=== PATIENT | female | born 1950 | race Caucasian/White ===

== ENCOUNTER 2016-07-24 14:04 | Emergency (ER) | payer MEDICARE, MEDICAID ==
[2016-07-24 23:51] LABS: BASO % 0.5 % (0.0-2.0); EOS # 0.1 K/uL (0.0-0.7); HEMATOCRIT 33.2 % (34.0-47.0); LYMPH # 1.1 K/uL (1.0-4.3); LYMPH % 11.8 % (20.0-40.0); MEAN CELL VOLUME 83.4 fL (81.0-99.0); MEAN CORPUSCULAR HEMOGLOBIN 27.7 pg (27.0-31.0); MEAN CORPUSCULAR HGB CONC 33.3 g/dL (33.0-37.0); MEAN PLATELET VOLUME 9.1 fL (7.2-11.7); MONO # 0.9 K/uL (0.0-0.8); MONO % 9.1 % (0.0-10.0); RED CELL DISTRIBUTION WIDTH 16.6 % (11.5-14.5); WHITE BLOOD COUNT 9.7 K/uL (4.8-10.8)
[2016-07-24 23:59] LABS: INR 1.1
[2016-07-25 00:39] LABS: ALB/GLOB RATIO 1.3 (1.0-2.1); BILIRUBIN,TOTAL 0.7 mg/dL (0.2-1.3); CALCIUM 9.5 mg/dl (8.6-10.4); POTASSIUM 3.9 mmol/L (3.6-5.2); TOTAL PROTEIN 7.3 g/dL (6.3-8.3); TROPONIN I 0.034 ng/mL (0.00-0.120)
[2016-07-25 06:10] LABS: URINE BILIRUBIN NEGATIVE (NEGATIVE); URINE BLOOD NEGATIVE (NEGATIVE); URINE COLOR YELLOW (YELLOW); URINE GLUCOSE (UA) Normal (Normal); URINE KETONE NEGATIVE (NEGATIVE)
[2016-07-25 06:11] LABS: RBC URINE < 1 /hpf (0-3); TRANSITIONAL EPITHIAL < 1 /hpf (0-3); URINE BACTERIA RARE (<OCC); URINE LEUKOCYTE ESTERASE Negative Leu/uL (Negative); URINE PROTEIN 2+ mg/dL (NEGATIVE); URINE UROBILINOGEN Normal mg/dL (0.2-1.0)
[2016-07-25 06:12] LABS: URINE CALCIUM OXALATE CRYSTALS RARE /hpf (<OCC); URINE HYALINE CAST 0-2 /lpf (0-2); WBC URINE 1 /hpf (0-5)
--- NOTE | 2016-07-25 08:56 | RAD ---
PROCEDURE: CHEST RADIOGRAPH, 1 VIEW HISTORY: NAUSEA COMPARISON: None available. FINDINGS: LUNGS: Mild venous congestion. PLEURA: No pneumothorax or pleural fluid seen. CARDIOVASCULAR: Status post median sternotomy and CABG. Cardiomegaly. OSSEOUS STRUCTURES: Postsurgical changes in the right proximal humerus. VISUALIZED UPPER ABDOMEN: Normal. OTHER FINDINGS: None. IMPRESSION: Mild venous congestion.
== END 2016-07-24 17:00 | disposition left against medical advice (07) ==
LOC: C.ER 14:04
DX: R42 Dizziness and giddiness (principal); N28.9 Disorder of kidney and ureter, unspecified
CPT/HCPCS: 71010; 80053; 81001; 84484; 85025; 85610; 85730; 96374; 99281; J2405; J7040